=== PATIENT | female | born 1995 | race Hispanic/Latino ===

== ENCOUNTER 2022-07-11 14:54 | Emergency (ER) | payer BC ==
[~2022-07-11] VITALS: Ht 165.1 cm; Wt 70.3 kg
[2022-07-11] MEDS ORDERED: DIPH-1242 PO (16:19)
[2022-07-11] MEDS ORDERED: CLIN-141 PO (16:19)
[2022-07-11] MEDS ORDERED: ACET-66 PO (16:19)
[2022-07-11] MEDS ORDERED: MOXIOS OD (16:19)
[2022-07-11] MEDS ORDERED: CLINDAMYCIN 150 MG CAP ONE (16:21)
[2022-07-11] MEDS ORDERED: DEXAMETHASONE SOD PHOSPHATE 4 MG/ML 1ML VIAL ONE (16:22)
[2022-07-11] MEDS ORDERED: KETOROLAC 60 MG VIAL (30MG/ML) IM ONE ×2 (16:22→16:30)
[2022-07-11 16:29] VITALS: BP 128/82
[2022-07-11] MEDS ORDERED: CLINDAMYCIN 150 MG CAP PO ONE (16:30)
[2022-07-11] MEDS ORDERED: DEXAMETHASONE SOD PHOSPHATE 4 MG/ML 1ML VIAL IM ONE (16:30)
== END 2022-07-11 16:42 | disposition home or self-care (01) ==
LOC: EDH 14:54
DX: L03.213 Periorbital cellulitis (principal); H10.9 Unspecified conjunctivitis; R51.9 Headache, unspecified
CPT/HCPCS: 99284; 96372 ×2; J1100; J1885